=== PATIENT | male | born 1990 | race Caucasian/White ===

== ENCOUNTER 2017-03-19 09:24 | Emergency (ER) | payer OTHER ==
[2017-03-19] MEDS ORDERED: IBUPROFEN 800 MG TABLET PO ONE (10:24)
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
[2017-03-19 12:31] VITALS: BP 134/85
== END 2017-03-19 12:31 | disposition home or self-care (01) ==
LOC: ER 09:24
DX: S00.03XA Contusion of scalp, initial encounter (principal); S80.02XA Contusion of left knee, initial encounter; M79.1 Myalgia; R51 Headache; M54.9 Dorsalgia, unspecified; V87.7XXA Person injured in collision between other specified motor vehicles (traffic), initial encounter
CPT/HCPCS: 99283